=== PATIENT | male | born 1950 | race Caucasian/White ===

== ENCOUNTER 2018-09-29 20:55 | Inpatient (IN) | payer MEDICAID ==
[2018-09-29] MEDS ORDERED: SODIUM CHLORIDE 0.9% 1L BAG IV* (21:56)
[2018-09-29] MEDS: CEFTRIAXONE 1 GM/50 ML (PMX) 50 ML IVPB (22:20)
[2018-09-29 22:24] LABS: ADD MAN DIFF? NO; URINE BLOOD (Dip) POC Trace-lysed (NEGATIVE); URINE GLUCOSE (Dip) POC Negative (NEGATIVE); URINE KETONES (Dip) POC 2+ (NEGATIVE); URINE LEUKOCYTE EST (Dip) POC Negative (NEGATIVE); URINE NITRITE (Dip) POC Negative (NEGATIVE); URINE TOTAL PROTEIN POC 2+ (NEGATIVE)
[2018-09-29] MEDS: ACETAMINOPHEN 325 MG TAB PO (22:28)
[2018-09-29 22:32] LABS: BASOPHILS % 0.3 % (0.0-2.0); EOSINOPHILS % 0.2 % (0.0-7.0); HEMOGLOBIN 11.9 g/dl (14.0-18.0); LYMPHOCYTES # 1.3 10^3/ul (0.8-2.9); LYMPHOCYTES % 9.5 % (15.0-51.0); MEAN CORPUSCULAR HEMOGLOBIN 29.9 pg (29.0-33.0); MEAN CORPUSCULAR HGB CONC 33.1 g/dl (32.0-37.0); MEAN CORPUSCULAR VOLUME 90.5 fl (82.0-101.0); MEAN PLATELET VOLUME 11.1 fl (7.4-10.4); MONOCYTE # 1.5 10^3/ul (0.3-0.9); MONOCYTES % 10.8 % (0.0-11.0); NEUTROPHIL # 10.7 10^3/ul (1.6-7.5); NEUTROPHILS % 77.8 % (39.0-77.0); PLATELET COUNT 262 10^3/UL (140-415); RED BLOOD COUNT 3.98 10^6/ul (4.70-6.10)
[2018-09-29 22:32] LABS: WHITE BLOOD COUNT 13.8 10^3/ul (4.8-10.8)
[2018-09-29 22:36] LABS: ADD UMIC YES; UR ASCORBIC ACID NEGATIVE (NEGATIVE); UR BILIRUBIN (Dip) NEGATIVE (NEGATIVE); UR BLOOD (Dip) NEGATIVE (NEGATIVE); UR CLARITY CLEAR (CLEAR); UR COLOR YELLOW (YELLOW); UR GLUCOSE (Dip) NEGATIVE (NEGATIVE); UR KETONES (Dip) 1+ mg/dL (NEGATIVE); UR LEUKOCYTE ESTERASE (Dip) NEGATIVE Leu/ul (NEGATIVE); UR MUCUS MODERATE /HPF (NONE SEEN); UR NITRITE (Dip) NEGATIVE (NEGATIVE); UR RBC 1 /HPF (0-5); UR SPECIFIC GRAVITY (Dip) 1.025 (1.003-1.030); UR TOTAL PROTEIN (Dip) 1+ mg/dl (NEGATIVE); UR UROBILINOGEN (Dip) 1+ mg/dL (NEGATIVE); UR WBC 1 /HPF (0-5)
[2018-09-29] MEDS: SODIUM CHLORIDE 0.9% 1L BAG IV* (22:39)
[2018-09-29 22:52] LABS: LACTIC ACID 1.1 mmol/L (0.5-2.0)
[2018-09-29 22:52] LABS: INR 1.08; PARTIAL THROMBOPLASTIN TIME 31.4 Sec (23.0-35.0); PROTIME 14.1 Sec (11.9-14.9); PT RATIO 1.1
[2018-09-29 22:54] LABS: ALANINE AMINOTRANSFERASE 12 IU/L (13-69); ALBUMIN 3.8 g/dl (3.3-4.9); ALBUMIN/GLOBULIN RATIO 1.15; ALKALINE PHOSPHATASE 76 IU/L (42-121); ANION GAP 15 (5-13); ASPARTATE AMINO TRANSFERASE 11 IU/L (15-46); BILIRUBIN,INDIRECT 0.6 mg/dl (0-1.1); BILIRUBIN,TOTAL 0.6 mg/dl (0.2-1.3); BLOOD UREA NITROGEN 22 mg/dl (7-20); CALCIUM 9.1 mg/dl (8.4-10.2); CARBON DIOXIDE 24 mmol/L (21-31); CHLORIDE 97 mmol/L (97-110); CREATININE 0.95 mg/dl (0.61-1.24); Estimated GFR > 60 mL/min (>60); GLUCOSE 216 mg/dl (70-220); POTASSIUM 4.3 mmol/L (3.5-5.1); SODIUM 136 mmol/L (135-144); TOTAL PROTEIN 7.1 g/dl (6.1-8.1)
[2018-09-29 23:05] LABS: TROPONIN-I < 0.012 ng/ml (0.000-0.120)
[2018-09-30] MEDS: AZITHROMYCIN 500MG/NS (PMX) 250 ML IVPB ×2 (00:18→08:01)
[2018-09-30 00:41] LABS: LACTIC ACID 1.2 mmol/L (0.5-2.0)
[2018-09-30] MEDS ORDERED: GLUCOSE GEL 15 GRAM TUBE PO ×2 (02:30)
[2018-09-30] MEDS ORDERED: CEFTRIAXONE 1 GM/50 ML (PMX) 50 ML IVPB (02:30)
[2018-09-30] MEDS ORDERED: NITROGLYCERIN (SL) 0.4 MG TAB SL (02:30)
[2018-09-30] MEDS ORDERED: GLUCOSE GEL 15 GRAM TUBE BUCCAL (02:30)
[2018-09-30] MEDS ORDERED: GLUCAGON 1 MG INJ IM (02:30)
[2018-09-30] MEDS ORDERED: ONDANSETRON 4 MG INJ IV (02:30)
[2018-09-30] MEDS ORDERED: DEXTROSE 50% 50 ML SYRINGE IV ×2 (02:30)
[2018-09-30] MEDS ORDERED: NACL 0.9% 3 ML SYG IV (02:30)
[2018-09-30] MEDS: SOD CHLORIDE 0.9% 1,000 ML IV ×3 (02:33→17:38)
[2018-09-30 06:02] LABS: ADD MAN DIFF? NO
[2018-09-30 06:06] LABS: BASOPHIL # 0.1 10^3/ul (0.0-0.1); BASOPHILS % 0.5 % (0.0-2.0); EOSINOPHILS # 0.1 10^3/ul (0.0-0.5); EOSINOPHILS % 0.5 % (0.0-7.0); HEMOGLOBIN 11.1 g/dl (14.0-18.0); LYMPHOCYTES # 1.3 10^3/ul (0.8-2.9); LYMPHOCYTES % 10.6 % (15.0-51.0); MEAN CORPUSCULAR HEMOGLOBIN 29.9 pg (29.0-33.0); MEAN CORPUSCULAR HGB CONC 32.6 g/dl (32.0-37.0); MEAN CORPUSCULAR VOLUME 91.6 fl (82.0-101.0); MEAN PLATELET VOLUME 11.2 fl (7.4-10.4); MONOCYTE # 1.5 10^3/ul (0.3-0.9); NEUTROPHIL # 9.4 10^3/ul (1.6-7.5); PLATELET COUNT 225 10^3/UL (140-415); RED BLOOD COUNT 3.71 10^6/ul (4.70-6.10); RED CELL DISTRIBUTION WIDTH 12.1 % (11.5-14.5)
[2018-09-30 06:06] LABS: WHITE BLOOD COUNT 12.5 10^3/ul (4.8-10.8)
[2018-09-30] MEDS ORDERED: ALBUTEROL/IPRATROPIUM (NEB) 3 ML AMP HHN (06:30)
[2018-09-30 06:37] LABS: ALANINE AMINOTRANSFERASE 16 IU/L (13-69); ALBUMIN 3.3 g/dl (3.3-4.9); ALKALINE PHOSPHATASE 67 IU/L (42-121); ANION GAP 11 (5-13); ASPARTATE AMINO TRANSFERASE 10 IU/L (15-46); BILIRUBIN,INDIRECT 0.4 mg/dl (0-1.1); BILIRUBIN,TOTAL 0.4 mg/dl (0.2-1.3); BLOOD UREA NITROGEN 20 mg/dl (7-20); CALCIUM 8.3 mg/dl (8.4-10.2); CARBON DIOXIDE 25 mmol/L (21-31); CHLORIDE 101 mmol/L (97-110); CHOL/HDL RATIO 2.7 RATIO; CHOLESTEROL 57 mg/dl (100-200); CREATININE 0.84 mg/dl (0.61-1.24); Estimated GFR > 60 mL/min (>60); GLUCOSE 254 mg/dl (70-220); HDL CHOLESTEROL 21 mg/dl (30-78); LDL CHOLESTEROL,CALCULATED 25 mg/dl; MAGNESIUM 1.5 mg/dl (1.7-2.5); POTASSIUM 4.2 mmol/L (3.5-5.1); SODIUM 137 mmol/L (135-144); TOTAL PROTEIN 6.3 g/dl (6.1-8.1); TRIGLYCERIDES 53 mg/dl (0-149)
[2018-09-30 06:56] LABS: LACTIC ACID 1.2 mmol/L (0.5-2.0)
[2018-09-30 07:12] LABS: HEMOGLOBIN A1C 9.2 % (0-5.9)
[2018-09-30] MEDS: GUAIFENESIN 20 MG/ML 5ML CUP PO (07:57)
[2018-09-30] MEDS: metFORMIN 500 MG TAB PO ×2 (07:58→17:38)
[2018-09-30] MEDS: INSULIN ASPART [NOVOLOG] 3 ML PEN SC ×4 (08:00→20:24)
[2018-09-30] MEDS: INSULIN GLARGINE [LANTus] (100 UNITS/ML) SYG SC (08:01)
[2018-09-30] MEDS: CLOPIDOGREL 75 MG TAB PO (08:02)
[2018-09-30] MEDS: ASPIRIN 81 MG TAB PO (08:08)
[2018-09-30] MEDS: LISINOPRIL 5 MG TAB PO (08:09)
[2018-09-30] MEDS: ALBUTEROL/IPRATROPIUM (NEB) 3 ML AMP HHN ×4 (09:12→20:45)
[2018-09-30] MEDS: CEFTRIAXONE 1 GM/50 ML (PMX) 50 ML IVPB ×2 (09:52→21:16)
[2018-09-30] MEDS: HEPARIN 5,000 UNIT/1 ML VIAL SC ×2 (14:24→20:20)
[2018-09-30] MEDS: ATORVASTATIN 40 MG TAB PO (20:16)
[2018-09-30] MEDS: MAGNESIUM SULFATE 2 GM/50 ML 50 ML IVPB (23:02)
[2018-10-01] MEDS: ACETAMINOPHEN 325 MG TAB PO (00:19)
[2018-10-01] MEDS: ALBUTEROL/IPRATROPIUM (NEB) 3 ML AMP HHN ×6 (00:48→20:00)
[2018-10-01] MEDS: ACCU-CHEK XX (01:52)
[2018-10-01 06:20] LABS: ADD MAN DIFF? NO
[2018-10-01 06:25] LABS: BASOPHIL # 0.1 10^3/ul (0.0-0.1); BASOPHILS % 0.4 % (0.0-2.0); EOSINOPHILS # 0.1 10^3/ul (0.0-0.5); EOSINOPHILS % 0.5 % (0.0-7.0); HEMATOCRIT 34.5 % (42.0-52.0); LYMPHOCYTES # 1.6 10^3/ul (0.8-2.9); LYMPHOCYTES % 13.1 % (15.0-51.0); MEAN CORPUSCULAR HEMOGLOBIN 29.7 pg (29.0-33.0); MEAN CORPUSCULAR HGB CONC 31.9 g/dl (32.0-37.0); MEAN CORPUSCULAR VOLUME 93.2 fl (82.0-101.0); MEAN PLATELET VOLUME 11.1 fl (7.4-10.4); MONOCYTE # 1.2 10^3/ul (0.3-0.9); MONOCYTES % 9.8 % (0.0-11.0); NEUTROPHILS % 74.6 % (39.0-77.0); PLATELET COUNT 254 10^3/UL (140-415); RED CELL DISTRIBUTION WIDTH 12.2 % (11.5-14.5)
[2018-10-01 06:25] LABS: WHITE BLOOD COUNT 12.1 10^3/ul (4.8-10.8)
[2018-10-01 07:11] LABS: ANION GAP 6 (5-13); BLOOD UREA NITROGEN 15 mg/dl (7-20); CALCIUM 8.4 mg/dl (8.4-10.2); CARBON DIOXIDE 27 mmol/L (21-31); CHLORIDE 104 mmol/L (97-110); CREATININE 0.82 mg/dl (0.61-1.24); Estimated GFR > 60 mL/min (>60); GLUCOSE 164 mg/dl (70-220); MAGNESIUM 2.2 mg/dl (1.7-2.5); PHOSPHORUS 3.7 mg/dl (2.5-4.9); POTASSIUM 4.3 mmol/L (3.5-5.1); SODIUM 137 mmol/L (135-144)
[2018-10-01] MEDS: metFORMIN 500 MG TAB PO (08:02)
[2018-10-01] MEDS: CLOPIDOGREL 75 MG TAB PO (08:02)
[2018-10-01] MEDS: ASPIRIN 81 MG TAB PO (08:02)
[2018-10-01] MEDS: LISINOPRIL 5 MG TAB PO (08:03)
[2018-10-01] MEDS: HEPARIN 5,000 UNIT/1 ML VIAL SC ×2 (08:14→20:44)
[2018-10-01] MEDS: INSULIN ASPART [NOVOLOG] 3 ML PEN SC ×4 (08:14→20:45)
[2018-10-01] MEDS: CEFTRIAXONE 1 GM/50 ML (PMX) 50 ML IVPB ×2 (10:02→22:50)
[2018-10-01] MEDS: AZITHROMYCIN 500MG/NS (PMX) 250 ML IVPB (10:35)
[2018-10-01 11:27] LABS: IRON 17 ug/dl (35-150)
[2018-10-01 11:36] LABS: % IRON SATURATION 9 % SAT (22-52); TOTAL IRON BINDING CAPACITY 182 ug/dl (241-421)
[2018-10-01] MEDS: INSULIN GLARGINE [LANTus] (100 UNITS/ML) SYG SC (12:14)
[2018-10-01 12:24] LABS: HEPATITIS C VIRAL ANTIBODY NEGATIVE (NEGATIVE)
[2018-10-01] MEDS: metFORMIN 850 MG TAB PO (17:43)
[2018-10-01] MEDS: ATORVASTATIN 40 MG TAB PO (20:41)
[2018-10-02] MEDS: ALBUTEROL/IPRATROPIUM (NEB) 3 ML AMP HHN ×6 (01:14→21:27)
[2018-10-02] MEDS: GUAIFENESIN/DM 5ML CUP PO ×2 (01:56→14:41)
[2018-10-02] MEDS: CEPASTAT LOZENGE MT ×3 (01:56→21:02)
[2018-10-02] MEDS: ACCU-CHEK XX (02:00)
[2018-10-02] MEDS: INSULIN ASPART [NOVOLOG] 3 ML PEN SC ×4 (08:00→21:00)
[2018-10-02] MEDS: metFORMIN 850 MG TAB PO ×2 (08:50→18:16)
[2018-10-02] MEDS: CLOPIDOGREL 75 MG TAB PO (08:51)
[2018-10-02] MEDS: ASPIRIN 81 MG TAB PO (08:51)
[2018-10-02] MEDS: HEPARIN 5,000 UNIT/1 ML VIAL SC ×2 (08:53→21:02)
[2018-10-02] MEDS: AZITHROMYCIN 500MG/NS (PMX) 250 ML IVPB (08:57)
[2018-10-02] MEDS: LISINOPRIL 5 MG TAB PO ×2 (08:57→20:58)
[2018-10-02] MEDS: INSULIN GLARGINE [LANTus] (100 UNITS/ML) SYG SC (09:06)
[2018-10-02] MEDS: SOD FERRIC GLUC COMPLX 125 MG in SOD CHLORIDE 0.9% 100 ML IVPB ×2 (10:00→12:09)
[2018-10-02] MEDS: CEFTRIAXONE 1 GM/50 ML (PMX) 50 ML IVPB ×2 (10:23→22:14)
[2018-10-02] MEDS: FERROUS FUMARATE (SR) TAB PO (12:08)
[2018-10-02] MEDS: ATORVASTATIN 40 MG TAB PO (20:58)
[2018-10-03] MEDS: ALBUTEROL/IPRATROPIUM (NEB) 3 ML AMP HHN ×4 (00:41→13:00)
[2018-10-03] MEDS: ACCU-CHEK XX (02:00)
[2018-10-03] MEDS: CEPASTAT LOZENGE MT (03:28)
[2018-10-03] MEDS: INSULIN ASPART [NOVOLOG] 3 ML PEN SC ×2 (08:00→12:00)
[2018-10-03] MEDS: metFORMIN 850 MG TAB PO (08:39)
[2018-10-03] MEDS: ASPIRIN 81 MG TAB PO (08:39)
[2018-10-03] MEDS: FERROUS FUMARATE (SR) TAB PO (08:39)
[2018-10-03] MEDS: CLOPIDOGREL 75 MG TAB PO (08:39)
[2018-10-03] MEDS: LISINOPRIL 5 MG TAB PO (08:40)
[2018-10-03] MEDS: INSULIN GLARGINE [LANTus] (100 UNITS/ML) SYG SC (08:41)
[2018-10-03] MEDS: HEPARIN 5,000 UNIT/1 ML VIAL SC (08:42)
[2018-10-03] MEDS: CEFTRIAXONE 1 GM/50 ML (PMX) 50 ML IVPB (10:06)
[2018-10-03] MEDS: SOD FERRIC GLUC COMPLX 125 MG in SOD CHLORIDE 0.9% 100 ML IVPB (12:15)
== END 2018-10-03 14:20 | disposition home or self-care (01) | DRG 871 ==
LOC: E/R 20:55 → MS3 09-30 01:54 → 2NE 10-01 13:00 → TEL 09-30 16:32
DX: A41.9 Sepsis, unspecified organism (principal); J18.9 Pneumonia, unspecified organism; I50.20 Unspecified systolic (congestive) heart failure; I11.0 Hypertensive heart disease with heart failure; Z95.5 Presence of coronary angioplasty implant and graft; I25.5 Ischemic cardiomyopathy; E11.9 Type 2 diabetes mellitus without complications; I71.4 Abdominal aortic aneurysm, without rupture; E86.0 Dehydration
CPT/HCPCS: 36415; 71045; 80048; 80053; 80061; 81001; 81003; 82962; 83036; 83540; 83605; 83735; 84100; 84443; 84484; 85025; 85610; 85730; 86803; 87040-91; 87070; 87086; 87400; 93005; 94640; 94664; 96374; 96375; 99285-25